=== PATIENT | female | born 1960 | race African-American/Black ===

== ENCOUNTER 2018-09-17 12:58 | Inpatient (IN) | payer MEDICARE, MEDICAID ==
[2018-09-17 13:56] LABS: HEMATOCRIT 34.6 % (36.0-47.0); HEMOGLOBIN 11.8 g/dL (12.0-15.5); MEAN CORPUSCULAR HEMOGLOBIN 30.1 pg (27.0-33.4); MEAN CORPUSCULAR HGB CONC 34.2 g/dL (32.0-36.0); MEAN CORPUSCULAR VOLUME 88 fl (80-97); PLATELET COUNT 417 10^3/uL (150-450); RED BLOOD COUNT 3.93 10^6/uL (3.72-5.28); RED CELL DISTRIBUTION WIDTH 15.1 % (11.5-14.0)
--- NOTE | 2018-09-17 14:12 | RADIOLOGY REPORT (SQ) ---
EXAM DESCRIPTION: CHEST SINGLE VIEW COMPLETED DATE/TIME: 09/17/2018 1:52 pm REASON FOR STUDY: bed 14 sepsis alert COMPARISON: 04/11/2013 EXAM PARAMETERS: NUMBER OF VIEWS: One view. TECHNIQUE: Single frontal radiographic view of the chest acquired. RADIATION DOSE: NA LIMITATIONS: None. FINDINGS: LUNGS AND PLEURA: Low lung volumes. No opacities, masses or pneumothorax. No pleural effu cipriano. MEDIASTINUM AND HILAR STRUCTURES: No masses. Contour normal. HEART AND VASCULAR STRUCTURES: Heart normal in size. Normal vasculature. BONES: No acute findings. HARDWARE: None in the chest. OTHER: No other significant finding. IMPRESSION: Low lung volumes without evidence of acute cardiopulmonary process. TECHNICAL DOCUMENTATION: JOB ID: [id number] [employer]- All Rights Reserved Reading location - IP/workstation name: [email or web address]
[2018-09-17 14:17] LABS: ABSOLUTE LYMPHOCYTES# (MANUAL) 0.7 10^3/uL (0.5-4.7); ABSOLUTE NEUTROPHILS# (MANUAL) 21.3 10^3/uL (1.7-8.2); BAND NEUTROPHILS % (MANUAL) 3 % (3-5); BASOPHILS % (MANUAL) 0 % (0-2); EOSINOPHILS % (MANUAL) 0 % (0-6); LYMPHOCYTES % (MANUAL) 3 % (13-45); MONOCYTES % (MANUAL) 0 % (3-13); SEGMENTED NEUTROPHILS % (MAN) 94 % (42-78); TOTAL CELLS COUNTED 100
[2018-09-17 14:19] LABS: ANISOCYTOSIS 1+; HYPERSEGMENTED NEUTROPHILS PRESENT; PLATELET CLUMPS PRESENT; PLATELET COMMENT ADEQUATE; POIKILOCYTOSIS 2+; POLYCHROMASIA SLIGHT; STOMATOCYTES 2+
[2018-09-17 14:21] LABS: VENOUS BLOOD BASE EXCESS -1.8 mmol/L; VENOUS BLOOD HCO3 22.2 mmol/L (20-32); VENOUS BLOOD PCO2 35.7 mmHg (35-63); VENOUS BLOOD PH 7.41 (7.30-7.42)
[2018-09-17 14:22] LABS: ALANINE AMINOTRANSFERASE 33 U/L (9-52); ALBUMIN 3.7 g/dL (3.5-5.0); ALKALINE PHOSPHATASE 221 U/L (38-126); ANION GAP 13 (5-19); ASPARTATE AMINO TRANSFERASE 41 U/L (14-36); BILIRUBIN,DIRECT 0.4 mg/dL (0.0-0.4); BILIRUBIN,TOTAL 0.7 mg/dL (0.2-1.3); BLOOD UREA NITROGEN 18 mg/dL (7-20); CALCIUM 9.2 mg/dL (8.4-10.2); CARBON DIOXIDE 22 mmol/L (22-30); CHLORIDE 103 mmol/L (98-107); GLUCOSE 205 mg/dL (75-110); POTASSIUM 4.8 mmol/L (3.6-5.0); SODIUM 138.1 mmol/L (137-145); TOTAL PROTEIN 7.3 g/dL (6.3-8.2)
--- NOTE | 2018-09-17 14:29 | ER Document Report ---
ED General - General Chief Complaint: Nausea/Vomiting/Diarrhea Stated Complaint: PAIN ALL OVER Time Seen by Provider: 09/17/18 13:22 Primary Care Provider: MARYA COATES MD [Primary Care Provider] - Follow up as needed TRAVEL OUTSIDE OF THE [place] IN LAST 30 DAYS: No - HPI Onset: Other - 3 weeks Onset/Duration: Gradual, Constant Quality of pain: Cramping Severity: Moderate Associated symptoms: Fever Exacerbated by: Food, Other - vomiting Relieved by: Denies Notes: Patient is a 58-year-old female that presents to the emergency department for chief complaint of nausea vomiting and abdominal pain. She states that she began experiencing her symptoms 3 weeks ago after her and her daughter took care of a baby that was later diagnosed with bronchitis. She reports complete relief of her symptoms yesterday and states that they began again today with nausea, vomiting x3, and chills. She also reports vaginal pain, dysuria and frequency of urination. She had a fever of 101.8 F per EMS. She states that she had an appointment scheduled with her primary care doctor for tomorrow, but that when the symptoms returned today she decided to come to the ED. Patient has not had a BM in 3 days. She has a history of hypertension. She denies surgical history, but has multiple surgeries scheduled for the near fut ure. Patient denies hematuria, hematemesis, shortness of breath, and back pain. Past Medical History: Hypertension, back pain Past Surgical History: Negative Social History: Denies drugs alcohol and tobacco Family History: Reviewed and noncontributory for presenting illness Allergies: Reviewed, see documented allergy list. REVIEW OF SYSTEMS: CONSTITUTIONAL : fever No chills No diaphoresis No recent illness EENT: No vision changes No congestion No sore throat CARDIOVASCULAR: No chest pain No palpitations RESPIRATORY: No shortness of breath No cough No difficulty breathing GASTROINTESTINAL: abdominal pain nausea vomiting diarrhea GENITOURINARY: dysuria No hematuria No difficulty urinating MUSCULOSKELETAL: No back pain No leg pain No arm pain SKIN: No rashes No lesions LYMPHATIC: No swollen, enlarged glands. NEUROLOGICAL: No lightheadedness No headache No weakness No paresthesias PSYCHIATRIC: No anxiety No depression PHYSICAL EXAMINATION: Vital signs reviewed, nursing noted reviewed. GENERAL: Well-appearing, well-nourished and in no acute distress. HEAD: Atraumatic, normocephalic. EYES: Eyes appear normal, extraocular movements intact, sclera anicteric, conjunctiva are normal. ENT: nares patent, oropharynx clear without exudates. Moist mucous membranes. NECK: Normal range of motion, supple without lymphadenopathy LUNGS: Breath sounds clear to auscultation bilaterally and equal. No wheezes rales or rhonchi. HEART: Tachycardic rate and regular rhythm without murmurs ABDOMEN: Soft, nontenter, normoactive bowel sounds. No rebound, guarding, or rigidity. No masses appreciated. EXTREMITIES: Nontender, good range of motion, no pitting or edema. NEUROLOGICAL: No focal neurological deficits. Moves all extremities spontaneously Motor and sensory grossly intact on exam. PSYCH: Normal mood, normal affect. SKIN: Warm, Dry, normal turgor, no rashes or lesions noted on exposed skin - Related Data Allergies/Adverse Reactions: No Known Allergies Allergy (Verified 09/17/18 13:53) Past Medical History - Social History Smoking Status: Unknown if Ever Smoked Family History: Reviewed & Not Pertinent Patient has suicidal ideation: No Patient has homicidal ideation: No - Past Medical History Cardiac Medical History: Reports: Hx Hypercholesterolemia, Hx Hypertension Renal/ Medical History: Denies: Hx Peritoneal Dialysis Musculoskeletal Medical History: Reports Hx Arthritis - Immunizations Hx Diphtheria, Pertussis, Tetanus Vaccination: Yes Physical Exam - Vital signs Vitals: Resp Pulse Ox 28 H 88 L 09/17/18 13:10 09/17/18 13:10 Course - Re-evaluation Re-evalutation: 09/17/18 14:30 Vitals reviewed. Nursing notes reviewed. Patient is febrile and tachycardic at presentation. She is meeting Sirs criteria. Patient was started on IV fluids. She received Zofran prior to arrival by EMS and reports improvement of her pain. Patient will be given Toradol for pain. Her abdominal exam is soft with no focal tenderness. Lab work shows a leukocytosis and elevated lactate consistent with sepsis. Urinalysis is not collected yet. Patient does have urinary complaints and will be started on Rocephin for likely UTI causing sepsis. She has elevated alk phos which is new for her and ultrasound of the right upper quadrant will be obtained to evaluate for underlying acute cholecystitis. Patient's renal function is also elevated and will be treated with fluid hydration. Is on telemetry and will continue to be monitored Laboratory 02/09/17/18 09/17/18 13:36 13:36 13:36 WBC 22.0 H RBC 3.93 Hgb 11.8 L Hct 34.6 L MCV 88 MCH 30.1 MCHC 34.2 RDW 15.1 H Plt Count 417 Total Counted 100 Seg Neutrophils % Not Reportable Seg Neuts % (Manual) 94 H Band Neutrophils % 3 Lymphocytes % Not Reportable Lymphocytes % (Manual) 3 L Monocytes % Not Reportable Monocytes % (Manual) 0 L Eosinophils % Not Reportable Eosinophils % (Manual) 0 Basophils % Not Reportable Basophils % (Manual) 0 Absolute Neutrophils Not Reportable Abs Neuts (Manual) 21.3 H Absolute Lymphocytes Not Reportable Abs Lymphs (Manual) 0.7 Absolute Monocytes Not Reportable Abs Monocytes (Manual) 0.0 L Absolute Eosinophils Not Reportable Absolute Eos (Manual) 0.0 Absolute Basophils Not Reportable Abs Basophils (Manual) 0.0 Hypersegmented Neuts PRESENT Clumped Platelets PRESENT Platelet Comment ADEQUATE Polychromasia SLIGHT Poikilocytosis 2+ Anisocytosis 1+ Stomatocytes 2+ PT Cancelled INR Cancelled Sodium 138.1 Potassium 4.8 Chloride 103 Carbon Dioxide 22 Anion Gap 13 BUN 18 Creatinine 1.77 H Est GFR ( Amer) 36 L Est GFR (Non-Af Amer) 30 L Glucose 205 H POC Glucose Lactic Acid Calcium 9.2 Total Bilirubin 0.7 Direct Bilirubin 0.4 Neonat Total Bilirubin Not Reportable Neonat Direct Bilirubin Not Reportable Neonat Indirect Bili Not Reportable AST 41 H ALT 33 Alkaline Phosphatase 221 H Total Protein 7.3 Albumin 3.7 09/17/18 09/17/18 13:36 13:36 WBC RBC Hgb Hct MCV MCH MCHC RDW Plt Count Total Counted Seg Neutrophils % Seg Neuts % (Manual) Band Neutrophils % Lymphocytes % Lymphocytes % (Manual) Monocytes % Monocytes % (Manual) Eosinophils % Eosinophils % (Manual) Basophils % Basophils % (Manual) Absolute Neutrophils Abs Neuts (Manual) Absolute Lymphocytes Abs Lymphs (Manual) Absolute Monocytes Abs Monocytes (Manual) Absolute Eosinophils Absolute Eos (Manual) Absolute Basophils Abs Basophils (Manual) Hypersegmented Neuts Clumped Platelets Platelet Comment Polychromasia Poikilocytosis Anisocytosis Stomatocytes PT INR Sodium Potassium Chloride Carbon Dioxide Anion Gap BUN Creatinine Est GFR ( Amer) Est GFR (Non-Af Amer) Glucose POC Glucose 200 H Lactic Acid 3.1 H Calcium Total Bilirubin Direct Bilirubin Neonat Total Bilirubin Neonat Direct Bilirubin Neonat Indirect Bili AST ALT Alkaline Phosphatase Total Protein Albumin 09/17/18 14:32 Cyst without acute cholecystitis. She does have a urinary tract infection and is meeting severe sepsis criteria. Patient is still tachycardic despite IV fluids. Her blood pressure has improved to 101/66 currently. Patient will be admitted to the [facility] for her severe sepsis and urinary tract infection. Case discussed with Dr. Cornell who has accepted admission. 09/17/18 18:28 - Vital Signs Vital signs: Temp Pulse Resp BP Pulse Ox 99.5 F 25 H 95/83 L 91 L 09/17/18 18:16 09/17/18 16:00 09/17/18 14:01 09/17/18 15:00 - Laboratory Result Diagrams: 09/17/18 13:36 09/17/18 13:36 Laboratory results interpreted by me: 09/17/18 09/17/18 09/17/18 13:36 13:36 13:36 WBC 22.0 H Hgb 11.8 L Hct 34.6 L RDW 15.1 H Seg Neuts % (Manual) 94 H Lymphocytes % (Manual) 3 L Monocytes % (Manual) 0 L Abs Neuts (Manual) 21.3 H Abs Monocytes (Manual) 0.0 L Creatinine 1.77 H Est GFR ( Amer) 36 L Est GFR (Non-Af Amer) 30 L Glucose 205 H POC Glucose Lactic Acid 3.1 H AST 41 H Alkaline Phosphatase 221 H Urine Protein Urine Blood Urine Urobilinogen Ur Leukocyte Esterase 09/17/18 09/17/18 09/17/18 13:36 17:06 17:51 WBC Hgb Hct RDW Seg Neuts % (Manual) Lymphocytes % (Manual) Monocytes % (Manual) Abs Neuts (Manual) Abs Monocytes (Manual) Creatinine Est GFR ( Amer) Est GFR (Non-Af Amer) Glucose POC Glucose 200 H Lactic Acid 5.8 H AST Alkaline Phosphatase Urine Protein 30 H Urine Blood MODERATE H Urine Urobilinogen 2.0 H Ur Leukocyte Esterase MODERATE H Discharge - Discharge Clinical Impression: Severe sepsis Urinary tract infection Qualifiers: Urinary tract infection type: site unspecified Hematuria presence: with hematuria Qualified Code(s): N39.0 - Urinary tract infection, site not specified; R31.9 - Hematuria, unspecified Condition: Stable Disposition: ADMITTED INPATIENT Admitting Provider: Hospitalist Unit Admitted: IMCU Referrals: MARYA COATES MD [Primary Care Provider] - Follow up as needed
[2018-09-17] MEDS ORDERED: NORMAL SALINE 1000 ML 1,000 ML IV PRN (14:31)
[2018-09-17] MEDS ORDERED: CEFTRIAXONE INJ 1000 MG VIAL IV ONE (14:34)
[2018-09-17] MEDS: RINGERS SOLUTION,LACTATED 1,000 ML IV PRN ×2 (15:04→15:05)
[2018-09-17 15:51] LABS: INTERNATIONAL RATION (INR) 0.99; PROTHROMBIN TIME 13.6 SEC (11.4-15.4)
[2018-09-17] MEDS ORDERED: ONDANSETRON HCL INJ/PF 4 MG/2 ML SDV IV ONE (17:25)
--- NOTE | 2018-09-17 17:36 | RADIOLOGY REPORT (SQ) ---
EXAM DESCRIPTION: U/S ABDOMEN LIMITED W/O DOP COMPLETED DATE/TIME: 09/17/2018 5:14 pm REASON FOR STUDY: RUQ pain COMPARISON: None. TECHNIQUE: Dynamic and static grayscale images acquired of the abdomen and recorded on PACS. Additio nal selected color Doppler and spectral images recorded. LIMITATIONS: None. FINDINGS: PANCREAS: Not visualized. LIVER: No focal masses. Fatty infiltration. 16.6 cm. LIVER VASCULATURE: Normal directional flow of the main portal vein and hepatic veins. GALLBLADDER: Multiple small stones. No pericholecystic fluid. ULTRASOUND-DETECTED FAIRBANKS'S SIGN: Negative. INTRAHEPATIC DUCTS AND COMMON DUCT: CBD and intrahepatic ducts normal caliber. No filling defects. INFERIOR VENA CAVA: Normal flow. AORTA: No aneurysm. RIGHT KIDNEY: Normal size. Normal echogenicity. No solid or suspicious masses. No hydronephrosis. No calcifications. PERITONEAL AND RIGHT PLEURAL SPACE: No ascites or effusions. OTHER: No other significant findings. IMPRESSION: Multiple small stones in the gallbladder. Fatty liver. TECHNICAL DOCUMENTATION: JOB ID: [id number] [employer]- All Rights Reserved Reading location - IP/workstation name: [email or web address]
[2018-09-17 18:12] LABS: APPEARANCE,URINE CLOUDY; BILIRUBIN,URINE NEGATIVE (NEGATIVE); GLUCOSE, URINE NEGATIVE (NEGATIVE); KETONES,URINE NEGATIVE (NEGATIVE); LEUKOCYTE ESTERASE,URINE MODERATE (NEGATIVE); NITRITE,URINE NEGATIVE (NEGATIVE); PROTEIN,URINE 30 mg/dL (NEGATIVE); URINE SPECIFIC GRAVITY 1.018
[2018-09-17 18:14] LABS: COLOR,URINE YELLOW
[2018-09-17] MEDS ORDERED: KETOROLAC TROMETHAMINE INJ/PF 30 MG/1 ML SDV IV ONE (18:33)
[2018-09-17] MEDS ORDERED: ACETAMINOPHEN 325 MG TABLET PO ONE (18:33)
[2018-09-17] MEDS ORDERED: IPRATROPIUM/ALBUTEROL 0.5-2.5 MG/3 ML AMPUL NEB PRN (18:59)
[2018-09-17] MEDS ORDERED: MAG HYDROX/AL HYDROX/SIMETH SUSP 30 ML UDCUP PO PRN (18:59)
[2018-09-17] MEDS ORDERED: MAGNESIUM HYDROXIDE SUSP 30 ML UDCUP PO PRN (18:59)
[2018-09-17] MEDS ORDERED: ONDANSETRON HCL INJ/PF 4 MG/2 ML SDV IV PRN (18:59)
[2018-09-17] MEDS ORDERED: ACETAMINOPHEN 325 MG TABLET PO PRN (20:14)
[2018-09-17] MEDS: DOCUSATE SODIUM 100 MG CAPSULE PO SCH (21:05)
[2018-09-17] MEDS: HEPARIN SOD (PORCINE) 5,000 UNIT/ML 1 ML SYRINGE SUBCUT SCH (21:05)
[2018-09-17] MEDS: TRAZODONE HCL 50 MG TABLET PO SCH (21:05)
[2018-09-18] MEDS ORDERED: NORMAL SALINE 1000 ML 1,000 ML IV ONE (04:44)
--- NOTE | 2018-09-18 04:54 | PDOC H&P ---
History of Present Illness Admission Date/PCP: 09/17/18 18:32 MARYA COATES MD Patient complains of: Fever and diarrhea History of Present Illness: VENTURA PEARSON is a 58 year old female with a past medical history of hypertension, morbid obesity and osteoarthritis. Patient presents with 48 hours of fever, nausea and vomiting of gastric content and diarrhea prompting her to seek evaluation in the emergency department where she is found to have fever, hypotension, leukocytosis, acute renal failure and pyuria. Ultrasound is negative for common bile duct dilatation or hydronephrosis. She receives an IV fluid challenge, empiric antibiotics and referred to the hospitalist for admission. Patient denies history of nephrolithiasis or recent antibiotic use. She is tearful and admits to excessive use of ibuprofen for chronic back pain. Past Medical History Cardiac Medical History: Reports: Hyperlipidema, Hypertension Musculoskeltal Medical History: Reports: Arthritis Psychiatric Medical History: Reports: Depression, General Anxiety Disorder Denies: Tobacco Dependency Past Surgical History Past Surgical History: Reports: None Social History Information Source: Patient, Relative Lives with: Family Smoking Status: Former Smoker Number of Years Smokin Last Time Smoked: 2009 Frequency of Alcohol Use: None Hx Recreational Drug Use: No Drugs: None Hx Prescription Drug Abuse: No - Advance Directive Resuscitation Status: Full Code Family History Family History: COPD, DM Parental Family History Reviewed: Yes Children Family History Reviewed: Yes Sibling(s) Family History Reviewed.: Yes Medication/Allergy Home Medications: Amlodipine Besylate [Norvasc 10 mg Tablet] 10 mg PO DAILY 09/17/18 Atenolol [Tenormin] 50 mg PO DAILY 09/17/18 Diazepam [Valium 5 mg Tablet] 5 mg PO TIDP PRN 09/17/18 Ergocalciferol (Vitamin D2) [Drisdol] 50,000 unit PO .WEEKLY 09/17/18 Tramadol HCl [Ultram] 50 mg PO Q8HP PRN 09/17/18 Allergies/Adverse Reactions: No Known Allergies Allergy (Verified 09/17/18 13:53) Review of Systems Constitutional: ABSENT: chills, fever(s), headache(s), weight gain, weight loss Eyes: ABSENT: visual disturbances Ears: ABSENT: hearing changes Cardiovascular: ABSENT: chest pain, dyspnea on exertion, edema, orthropnea, palpitations Respiratory: ABSENT: cough, hemoptysis Gastrointestinal: ABSENT: abdominal pain, constipation, diarrhea, hematemesis, hematochezia, nausea, vomiting Genitourinary: ABSENT: dysuria, hematuria Musculoskeletal: ABSENT: joint swelling Integumentary: ABSENT: rash, wounds Neurological: ABSENT: abnormal gait, abnormal speech, confusion, dizziness, focal weakness, syncope Psychiatric: ABSENT: anxiety, depression, homidical ideation, suicidal ideation Endocrine: ABSENT: cold intolerance, heat intolerance, polydipsia, polyuria Hematologic/Lymphatic: ABSENT: easy bleeding, easy bruising Physical Exam Vital Signs: Temp Pulse Resp BP Pulse Ox 99.1 F 75 20 100/56 L 98 09/17/18 23:59 09/18/18 02:00 09/17/18 23:59 09/17/18 23:59 09/18/18 03:50 Intake & Output 09/16/18 09/17/18 09/18/18 11:59 11:59 11:59 Intake Total 1000 Output Total 0 Balance 1000 Weight 121.3 kg General appearance: PRESENT: cooperative, mild distress, morbidly obese. ABSENT: disheveled Head exam: PRESENT: atraumatic, normocephalic Eye exam: PRESENT: conjunctiva pink, EOMI, PERRLA. ABSENT: scleral icterus Ear exam: PRESENT: normal external ear exam Mouth exam: PRESENT: moist, tongue midline Neck exam: ABSENT: carotid bruit, JVD, lymphadenopathy, thyromegaly Respiratory exam: PRESENT: clear to auscultation eusebio, symmetrical, tachypnea. ABSENT: rales, rhonchi, wheezes Cardiovascular exam: PRESENT: RRR, tachycardia. ABSENT: diastolic murmur, rubs, systolic murmur Pulses: PRESENT: normal dorsalis pedis pul Vascular exam: PRESENT: normal capillary refill GI/Abdominal exam: PRESENT: normal bowel sounds, soft, other - No flank pain to percussion. ABSENT: distended, guarding, mass, organolmegaly, rebound, tenderness Rectal exam: PRESENT: deferred Extremities exam: PRESENT: full ROM. ABSENT: calf tenderness, clubbing, pedal edema Neurological exam: PRESENT: alert, awake, oriented to person, oriented to place, oriented to time, oriented to situation, CN II-XII grossly intact. ABSENT: motor sensory deficit Psychiatric exam: PRESENT: anxious. ABSENT: depressed, flat affect Skin exam: PRESENT: dry, intact, warm. ABSENT: cyanosis, rash Results Laboratory Results: 09/17/18 13:36 09/17/18 13:36 09/17/18 09/17/18 09/17/18 13:36 13:36 13:36 WBC 22.0 H RBC 3.93 Hgb 11.8 L Hct 34.6 L MCV 88 MCH 30.1 MCHC 34.2 RDW 15.1 H Plt Count 417 Seg Neutrophils % Not Reportable Lymphocytes % Not Reportable Monocytes % Not Reportable Eosinophils % Not Reportable Basophils % Not Reportable Absolute Neutrophils Not Reportable Absolute Lymphocytes Not Reportable Absolute Monocytes Not Reportable Absolute Eosinophils Not Reportable Absolute Basophils Not Reportable VBG pH VBG pCO2 VBG HCO3 VBG Base Excess Sodium 138.1 Potassium 4.8 Chloride 103 Carbon Dioxide 22 Anion Gap 13 BUN 18 Creatinine 1.77 H Est GFR ( Amer) 36 L Est GFR (Non-Af Amer) 30 L Glucose 205 H Lactic Acid 3.1 H Calcium 9.2 Total Bilirubin 0.7 AST 41 H ALT 33 Alkaline Phosphatase 221 H Total Protein 7.3 Albumin 3.7 Urine Color Urine Appearance Urine pH Ur Specific [place] Urine Protein Urine Glucose (UA) Urine Ketones Urine Blood Urine Nitrite Ur Leukocyte Esterase Urine WBC (Auto) Urine RBC (Auto) 09/17/18 09/17/18 09/17/18 14:07 17:06 17:51 WBC RBC Hgb Hct MCV MCH MCHC RDW Plt Count Seg Neutrophils % Lymphocytes % Monocytes % Eosinophils % Basophils % Absolute Neutrophils Absolute Lymphocytes Absolute Monocytes Absolute Eosinophils Absolute Basophils VBG pH 7.41 VBG pCO2 35.7 VBG HCO3 22.2 VBG Base Excess -1.8 Sodium Potassium Chloride Carbon Dioxide Anion Gap BUN Creatinine Est GFR ( Amer) Est GFR (Non-Af Amer) Glucose Lactic Acid 5.8 H Calcium Total Bilirubin AST ALT Alkaline Phosphatase Total Protein Albumin Urine Color YELLOW Urine Appearance CLOUDY Urine pH 5.0 Ur Specific [place] 1.018 Urine Protein 30 H Urine Glucose (UA) NEGATIVE Urine Ketones NEGATIVE Urine Blood MODERATE H Urine Nitrite NEGATIVE Ur Leukocyte Esterase MODERATE H Urine WBC (Auto) 48 Urine RBC (Auto) 6 09/17/18 21:25 WBC RBC Hgb Hct MCV MCH MCHC RDW Plt Count Seg Neutrophils % Lymphocytes % Monocytes % Eosinophils % Basophils % Absolute Neutrophils Absolute Lymphocytes Absolute Monocytes Absolute Eosinophils Absolute Basophils VBG pH VBG pCO2 VBG HCO3 VBG Base Excess Sodium Potassium Chloride Carbon Dioxide Anion Gap BUN Creatinine Est GFR ( Amer) Est GFR (Non-Af Amer) Glucose Lactic Acid 1.7 Calcium Total Bilirubin AST ALT Alkaline Phosphatase Total Protein Albumin Urine Color Urine Appearance Urine pH Ur Specific [place] Urine Protein Urine Glucose (UA) Urine Ketones Urine Blood Urine Nitrite Ur Leukocyte Esterase Urine WBC (Auto) Urine RBC (Auto) Impressions: Chest X-Ray 09/17/18 13:04 IMPRESSION: Low lung volumes without evidence of acute cardiopulmonary process. Abdomen Ultrasound 09/17/18 14:30 IMPRESSION: Multiple small stones in the gallbladder. Fatty liver. Assessment & Plan - Diagnosis (1) Urinary tract infection Qualifiers: Urinary tract infection type: site unspecified Hematuria presence: with he maturia Qualified Code(s): N39.0 - Urinary tract infection, site not spec ified; R31.9 - Hematuria, unspecified Is this a current diagnosis for this admission?: Yes Plan: Complicated by hyperglycemia and suspected undiagnosed diabetes. No history of nephrolithiasis. IV Rocephin, IV fluid challenge, follow-up CBC, blood and urine culture (2) Severe sepsis Is this a current diagnosis for this admission?: Yes Plan: Secondary to #1, IV fluid challenge, consider pressors as needed (3) Hyperglycemia Is this a current diagnosis for this admission?: Yes Plan: Likely undiagnosed diabetes, sliding scale insulin ordered follow-up A1c (4) Morbid obesity Is this a current diagnosis for this admission?: Yes Plan: Morbid obesity will evaluate for metabolic cause with evaluation of thyroid function and dietitian consultation - Time Time Spent: 50 to 70 Minutes - Inpatient Certification Medical Necessity: Need Close Monitoring Due to Risk of Patient Decompensation
[2018-09-18] MEDS: HEPARIN SOD (PORCINE) 5,000 UNIT/ML 1 ML SYRINGE SUBCUT SCH ×3 (05:14→22:23)
[2018-09-18 06:38] LABS: ABSOLUTE BASOPHILS # (AUTO) 0.1 10^3/uL (0.0-0.2); ABSOLUTE LYMPHOCYTES (AUTO) 2.4 10^3/uL (0.5-4.7); ABSOLUTE MONOCYTES (AUTO) 0.6 10^3/uL (0.1-1.4); ABSOLUTE NEUT (AUTO) 13.7 10^3/uL (1.7-8.2); BASOPHILS % (AUTO) 0.5 % (0-2); EOSINOPHILS % (AUTO) 0.1 % (0-6); HEMATOCRIT 31.5 % (36.0-47.0); HEMOGLOBIN 10.5 g/dL (12.0-15.5); LYMPHOCYTES % (AUTO) 14.2 % (13-45); MEAN CORPUSCULAR HEMOGLOBIN 29.8 pg (27.0-33.4); MEAN CORPUSCULAR HGB CONC 33.4 g/dL (32.0-36.0); MEAN CORPUSCULAR VOLUME 89 fl (80-97); MONOCYTES % (AUTO) 3.4 % (3-13); PLATELET COUNT 316 10^3/uL (150-450); RED BLOOD COUNT 3.54 10^6/uL (3.72-5.28); RED CELL DISTRIBUTION WIDTH 15.1 % (11.5-14.0); SEGMENTED NEUTROPHILS % (AUTO) 81.8 % (42-78); TOTAL CELLS COUNTED % (AUTO) 100 %; WHITE BLOOD COUNT 16.7 10^3/uL (4.0-10.5)
[2018-09-18 06:54] LABS: ANION GAP 10 (5-19); BLOOD UREA NITROGEN 26 mg/dL (7-20); CALCIUM 8.6 mg/dL (8.4-10.2); CARBON DIOXIDE 27 mmol/L (22-30); CHLORIDE 102 mmol/L (98-107); GLUCOSE 124 mg/dL (75-110); POTASSIUM 4.6 mmol/L (3.6-5.0); SODIUM 139.4 mmol/L (137-145)
[2018-09-18] MEDS: DOCUSATE SODIUM 100 MG CAPSULE PO SCH ×2 (09:35→18:20)
[2018-09-18] MEDS: CEFTRIAXONE 1 GM/D5W RTU 1 GM/50 ML RTUPB IV SCH (12:56)
[2018-09-18] MEDS: TRAMADOL HCL 50 MG TABLET PO PRN (17:03)
--- NOTE | 2018-09-18 17:04 | PDOC PROGRESS REPORT ---
Subjective Progress Note for:: 09/18/18 Subjective:: No adverse events overnight. No new complaints. She says she is starting to put out some urine and just urinated for the first time since admission. She was also previously having some shaking chills but those have also resolved. Her appetite is improving. Reason For Visit: UTI SEPSIS ARF MORBID OBESITY Physical Exam Vital Signs: Temp Pulse Resp BP Pulse Ox 98.2 F 86 16 105/75 97 09/18/18 12:00 09/18/18 14:00 09/18/18 12:00 09/18/18 12:00 09/18/18 12:00 Intake & Output 09/17/18 09/18/18 09/19/18 06:59 06:59 06:59 Intake Total 2200 355 Output Total 0 400 Balance 2200 -45 Weight 121 kg 121 kg General appearance: PRESENT: no acute distress, cooperative, disheveled, morbidly obese Respiratory exam: PRESENT: clear to auscultation eusebio, symmetrical, unlabored. ABSENT: accessory muscle use, crackles, prolonged expiratory phas, rhonchi, tachypnea, wheezes Cardiovascular exam: PRESENT: RRR, +S1, +S2 Pulses: PRESENT: normal carotid pulses Vascular exam: PRESENT: normal capillary refill GI/Abdominal exam: PRESENT: normal bowel sounds, soft. ABSENT: distended, guarding, rebound, tenderness Extremities exam: ABSENT: clubbing, pedal edema Musculoskeletal exam: PRESENT: normal inspection. ABSENT: deformity Neurological exam: PRESENT: alert, awake, oriented to person, oriented to place, oriented to time, oriented to situation Psychiatric exam: PRESENT: appropriate affect, normal mood Skin exam: PRESENT: dry, warm Results Laboratory Results: 09/18/18 05:10 09/18/18 05:10 09/17/18 09/17/18 09/17/18 14:07 17:06 17:51 WBC RBC Hgb Hct MCV MCH MCHC RDW Plt Count Seg Neutrophils % Lymphocytes % Monocytes % Eosinophils % Basophils % Absolute Neutrophils Absolute Lymphocytes Absolute Monocytes Absolute Eosinophils Absolute Basophils VBG pH 7.41 VBG pCO2 35.7 VBG HCO3 22.2 VBG Base Excess -1.8 Sodium Potassium Chloride Carbon Dioxide Anion Gap BUN Creatinine Est GFR ( Amer) Est GFR (Non-Af Amer) Glucose Lactic Acid 5.8 H Calcium TSH Urine Color YELLOW Urine Appearance CLOUDY Urine pH 5.0 Ur Specific [place] 1.018 Urine Protein 30 H Urine Glucose (UA) NEGATIVE Urine Ketones NEGATIVE Urine Blood MODERATE H Urine Nitrite NEGATIVE Ur Leukocyte Esterase MODERATE H Urine WBC (Auto) 48 Urine RBC (Auto) 6 09/17/18 09/18/18 09/18/18 21:25 05:10 05:10 WBC 16.7 H RBC 3.54 L Hgb 10.5 L Hct 31.5 L MCV 89 MCH 29.8 MCHC 33.4 RDW 15.1 H Plt Count 316 Seg Neutrophils % 81.8 H Lymphocytes % 14.2 Monocytes % 3.4 Eosinophils % 0.1 Basophils % 0.5 Absolute Neutrophils 13.7 H Absolute Lymphocytes 2.4 Absolute Monocytes 0.6 Absolute Eosinophils 0.0 Absolute Basophils 0.1 VBG pH VBG pCO2 VBG HCO3 VBG Base Excess Sodium 139.4 Potassium 4.6 Chloride 102 Carbon Dioxide 27 Anion Gap 10 BUN 26 H Creatinine 2.07 H Est GFR ( Amer) 30 L Est GFR (Non-Af Amer) 25 L Glucose 124 H Lactic Acid 1.7 Calcium 8.6 TSH Urine Color Urine Appearance Urine pH Ur Specific [place] Urine Protein Urine Glucose (UA) Urine Ketones Urine Blood Urine Nitrite Ur Leukocyte Esterase Urine WBC (Auto) Urine RBC (Auto) 09/18/18 05:10 WBC RBC Hgb Hct MCV MCH MCHC RDW Plt Count Seg Neutrophils % Lymphocytes % Monocytes % Eosinophils % Basophils % Absolute Neutrophils Absolute Lymphocytes Absolute Monocytes Absolute Eosinophils Absolute Basophils VBG pH VBG pCO2 VBG HCO3 VBG Base Excess Sodium Potassium Chloride Carbon Dioxide Anion Gap BUN Creatinine Est GFR ( Amer) Est GFR (Non-Af Amer) Glucose Lactic Acid Calcium TSH 1.63 Urine Color Urine Appearance Urine pH Ur Specific [place] Urine Protein Urine Glucose (UA) Urine Ketones Urine Blood Urine Nitrite Ur Leukocyte Esterase Urine WBC (Auto) Urine RBC (Auto) Impressions: Chest X-Ray 09/17/18 13:04 IMPRESSION: Low lung volumes without evidence of acute cardiopulmonary process. Abdomen Ultrasound 09/17/18 14:30 IMPRESSION: Multiple small stones in the gallbladder. Fatty liver. Assessment & Plan - Diagnosis (1) Severe sepsis Is this a current diagnosis for this admission?: Yes Plan: Improving with antibiotics and IV fluids. Urine output is improving. Due to urinary tract infection. Cultures are pending. (2) Acute renal failure Qualifiers: Acute renal failure type: unspecified Qualified Code(s): N17.9 - Acute kidney failure, unspecified Is this a current diagnosis for this admission?: Yes Plan: Her creatinine has actually gone up, and with her BUN it would look more like ATN. However, her urine output is increasing. We will continue to follow the trend in her creatinine. (3) Urinary tract infection Qualifiers: Urinary tract infection type: site unspecified Hematuria presence: with hematuria Qualified Code(s): N39.0 - Urinary tract infection, site not specified; R31.9 - Hematuria, unspecified Is this a current diagnosis for this admission?: Yes Plan: On antibiotics. Cultures are pending. (4) Morbid obesity Is this a current diagnosis for this admission?: Yes Plan: Encouraged lifestyle modification - Time Time Spent with patient: 25-34 minutes
[2018-09-18] MEDS: TRAZODONE HCL 50 MG TABLET PO SCH (21:15)
--- NOTE | 2018-09-18 22:18 | EKG REPORT ---
SEVERITY:- ABNORMAL ECG - SINUS TACHYCARDIA MARIO, CONSIDER BIATRIAL ABNORMALITIES BORDERLINE T ABNORMALITIES, ANT-LAT LEADS : Confirmed by: Velma Puri 18-Sep-2018 22:17:07
[2018-09-19] MEDS: HEPARIN SOD (PORCINE) 5,000 UNIT/ML 1 ML SYRINGE SUBCUT SCH ×3 (05:26→22:00)
[2018-09-19] MEDS: DOCUSATE SODIUM 100 MG CAPSULE PO SCH ×2 (09:43→17:47)
[2018-09-19] MEDS: TRAMADOL HCL 50 MG TABLET PO PRN (09:43)
[2018-09-19 11:10] LABS: HEMOGLOBIN 9.5 g/dL (12.0-15.5); MEAN CORPUSCULAR HEMOGLOBIN 29.9 pg (27.0-33.4); MEAN CORPUSCULAR VOLUME 88 fl (80-97); PLATELET COUNT 313 10^3/uL (150-450); RED BLOOD COUNT 3.18 10^6/uL (3.72-5.28); WHITE BLOOD COUNT 13.5 10^3/uL (4.0-10.5)
[2018-09-19 11:36] LABS: ANION GAP 9 (5-19); BLOOD UREA NITROGEN 17 mg/dL (7-20); CALCIUM 8.5 mg/dL (8.4-10.2); CARBON DIOXIDE 24 mmol/L (22-30); CHLORIDE 104 mmol/L (98-107); GLUCOSE 189 mg/dL (75-110); POTASSIUM 4.7 mmol/L (3.6-5.0); SODIUM 137.3 mmol/L (137-145)
[2018-09-19] MEDS: CEFTRIAXONE 1 GM/D5W RTU 1 GM/50 ML RTUPB IV SCH (11:53)
--- NOTE | 2018-09-19 13:58 | Progress Note ---
Provider Note Provider Note: ID Consult Note Asked by Pharmacy to review patient's chart. Pt not seen or examined. Ms Sanford is a 58 year old woman with PMH including morbid obesity, HTN, and OA who was admitted on 09/17/18 after she presented to the ED with fever, nausea, vomiting and diarrhea. She was found to have temp of 103 F, tachycardia, hypotension. On exam she had no CVA tenderness, had clear lungs, NABS, no abdominal tenderness noted. Labs revealed elevated lactic acid level, DAIN, leukocyotsis, and pyuria on U/A. RUQ U/S was negative for CBD dilatation or hydronephrosis. CXR was read as showing low lung volumes without acute cardiopulmonary process. She was suspected of having sepsis due to a UTI. Rocephin was started. One set of initial blood cultures has growth of Gram negative rods preliminarily reported. The urine culture grew >100k Enterococcus faecalis, however. Pt has had improvement with resolution of elevated lactate, leukocytosis trending down, SCr trending down, last fever on 09/18. Impression/Recommendations Sepsis due to gram negative bacillary bacteremia. - I suspect this is more likely GI rather than in origin given lack of dysuria reported, a different organism (not a GNR growing in urine culture), presenting GI symptoms, hx of diverticulosis on prior CT scan. - Would continue empiric Rocephin but recommend increasing dose to 2 g Rocephin IV daily given pt's size and seriousness of infection. - Consider adding Flagyl. - Consider CT scan of abdomen to evaluate whether pt might have a source there such as diverticulitis or diverticular abscess. Willie Napoles MD [facility] pager [phone]
--- NOTE | 2018-09-19 15:48 | PDOC PROGRESS REPORT ---
Subjective Progress Note for:: 09/19/18 Subjective:: No adverse events overnight. No new complaints. Vital signs been stable. She is eating and drinking better. Urine output has increased. She did have a fever overnight but has defervesced today. No more diarrhea. Reason For Visit: UTI SEPSIS ARF MORBID OBESITY Physical Exam Vital Signs: Temp Pulse Resp BP Pulse Ox 98.9 F 80 19 103/66 91 L 09/19/18 09:22 09/19/18 13:58 09/19/18 09:22 09/19/18 09:22 09/19/18 09:22 Intake & Output 09/18/18 09/19/18 09/20/18 06:59 06:59 06:59 Intake Total 2200 1045 50 Output Total 0 3150 Balance 2200 -2105 50 Weight 121 kg 121.5 kg General appearance: PRESENT: no acute distress, cooperative, disheveled, morbidly obese Respiratory exam: PRESENT: clear to auscultation eusebio, symmetrical, unlabored. ABSENT: accessory muscle use, crackles, prolonged expiratory phas, rhonchi, tachypnea, wheezes Cardiovascular exam: PRESENT: RRR, +S1, +S2 Pulses: PRESENT: normal carotid pulses Vascular exam: PRESENT: normal capillary refill GI/Abdominal exam: PRESENT: normal bowel sounds, soft. ABSENT: distended, guarding, rebound, tenderness Extremities exam: ABSENT: clubbing, pedal edema Musculoskeletal exam: PRESENT: normal inspection. ABSENT: deformity Neurological exam: PRESENT: alert, awake, oriented to person, oriented to place, oriented to time, oriented to situation Psychiatric exam: PRESENT: appropriate affect, normal mood Skin exam: PRESENT: dry, warm Results Laboratory Results: 09/19/18 10:36 09/19/18 10:36 09/19/18 09/19/18 10:36 10:36 WBC 13.5 H RBC 3.18 L Hgb 9.5 L Hct 28.0 L MCV 88 MCH 29.9 MCHC 34.0 RDW 15.0 H Plt Count 313 Sodium 137.3 Potassium 4.7 Chloride 104 Carbon Dioxide 24 Anion Gap 9 BUN 17 Creatinine 1.65 H Est GFR ( Amer) 39 L Est GFR (Non-Af Amer) 32 L Glucose 189 H Calcium 8.5 09/17/18 17:06 Clean Catch Midstream Urine Culture - Final Enterococcus Faecalis(Group D) Impressions: Chest X-Ray 09/17/18 13:04 IMPRESSION: Low lung volumes without evidence of acute cardiopulmonary process. Abdomen Ultrasound 09/17/18 14:30 IMPRESSION: Multiple small stones in the gallbladder. Fatty liver. Assessment & Plan - Diagnosis (1) Severe sepsis Is this a current diagnosis for this admission?: Yes Plan: Improving with antibiotics and IV fluids. Urine output is improving. Urine culture showing enterococcus, blood culture showing a gram-negative organism. Infectious disease recommending increasing the Rocephin to 2 g a day and adding Flagyl. Ordering CT scan as ID recommended to rule out a GI source for her bacteremia. (2) Acute renal failure Qualifiers: Acute renal failure type: unspecified Qualified Code(s): N17.9 - Acute kidney failure, unspecified Is this a current diagnosis for this admission?: Yes Plan: Due to sepsis. Improving with IV fluids. (3) Urinary tract infection Qualifiers: Urinary tract infection type: site unspecified Hematuria presence: with hematuria Qualified Code(s): N39.0 - Urinary tract infection, site not specified; R31.9 - Hematuria, unspecified Is this a current diagnosis for this admission?: Yes Plan: Currently on Rocephin. Has turned out to be an enterococcus. We will switch to amoxicillin pending the results of her blood culture. (4) Morbid obesity Is this a current diagnosis for this admission?: Yes Plan: Encouraged lifestyle modification - Time Time Spent with patient: 25-34 minutes
[2018-09-19] MEDS: METRONIDAZOLE 500 MG/NS RTU 500 MG/100 ML RTUPB IV SCH ×2 (17:42→23:23)
[2018-09-19] MEDS: TRAZODONE HCL 50 MG TABLET PO SCH (21:11)
[2018-09-20] MEDS: METRONIDAZOLE 500 MG/NS RTU 500 MG/100 ML RTUPB IV SCH ×3 (05:02→17:57)
[2018-09-20] MEDS: HEPARIN SOD (PORCINE) 5,000 UNIT/ML 1 ML SYRINGE SUBCUT SCH ×3 (05:03→21:34)
[2018-09-20] MEDS: CEFTRIAXONE 2 GM/D5W RTU 2 GM/50 ML RTUPB IV SCH (10:03)
[2018-09-20] MEDS: DOCUSATE SODIUM 100 MG CAPSULE PO SCH ×2 (10:13→17:56)
--- NOTE | 2018-09-20 16:35 | PDOC PROGRESS REPORT ---
Subjective Progress Note for:: 09/20/18 Subjective:: No adverse events overnight. Try to get a CT scan on her as recommended by infectious disease, but the patient adamantly refused to do it. She even refused to try whenever I told her we could give her something to calm her so we can get the test done but she continued to refuse. She had a fever again last night. She is denying any significant abdominal pain. No diarrhea. Reason For Visit: UTI SEPSIS ARF MORBID OBESITY Physical Exam Vital Signs: Temp Pulse Resp BP Pulse Ox 99.0 F 99 19 124/66 96 09/20/18 12:16 09/20/18 12:16 09/20/18 12:16 09/20/18 12:16 09/20/18 12:16 Intake & Output 09/19/18 09/20/18 09/21/18 06:59 06:59 06:59 Intake Total 1045 1105 50 Output Total 3150 4 Balance -2105 1101 50 Weight 121.5 kg 122.2 kg General appearance: PRESENT: no acute distress, cooperative, disheveled, morbidly obese Respiratory exam: PRESENT: clear to auscultation eusebio, symmetrical, unlabored. ABSENT: accessory muscle use, crackles, prolonged expiratory phas, rhonchi, ta chypnea, wheezes Cardiovascular exam: PRESENT: RRR, +S1, +S2 Pulses: PRESENT: normal carotid pulses Vascular exam: PRESENT: normal capillary refill GI/Abdominal exam: PRESENT: normal bowel sounds, soft. ABSENT: distended, guarding, rebound, tenderness Extremities exam: ABSENT: clubbing, pedal edema Musculoskeletal exam: PRESENT: normal inspection. ABSENT: deformity Neurological exam: PRESENT: alert, awake, oriented to person, oriented to place, oriented to time, oriented to situation Psychiatric exam: PRESENT: appropriate affect, normal mood Skin exam: PRESENT: dry, warm Results Laboratory Results: 09/19/18 10:36 09/19/18 10:36 09/17/18 13:36 Blood Blood Culture - Final Proteus Mirabilis Impressions: Chest X-Ray 09/17/18 13:04 IMPRESSION: Low lung volumes without evidence of acute cardiopulmonary process. Abdomen Ultrasound 09/17/18 14:30 IMPRESSION: Multiple small stones in the gallbladder. Fatty liver. Assessment & Plan - Diagnosis (1) Severe sepsis Is this a current diagnosis for this admission?: Yes Plan: Improving with antibiotics and IV fluids. Urine output is improving. Urine culture showing enterococcus, blood culture showing a gram-negative organism. Infectious disease recommending increasing the and Flagyl . To 2 g a day and adding Flagyl. She is refusing to get the CT scan that ID recommended. At this point, we will continue to empirically treat with Flagyl and Rocephinuntil we get final culture results (2) Acute renal failure Qualifiers: Acute renal failure type: unspecified Qualified Code(s): N17.9 - Acute kidney failure, unspecified Is this a current diagnosis for this admission?: Yes Plan: Creatinine now trending back down after IV fluids and antibiotics. Suspect that her acute renal failure was due to sepsis. (3) Urinary tract infection Qualifiers: Urinary tract infection type: site unspecified Hematuria presence: with hematuria Qualified Code(s): N39.0 - Urinary tract infection, site not specified; R31.9 - Hematuria, unspecified Is this a current diagnosis for this admission?: Yes Plan: Currently on Rocephin. Has turned out to be an enterococcus. We will switch to amoxicillin pending the results of her blood culture. (4) Morbid obesity Is this a current diagnosis for this admission?: Yes Plan: Encouraged lifestyle modification - Time Time Spent with patient: 25-34 minutes
[2018-09-20] MEDS: TRAZODONE HCL 50 MG TABLET PO SCH (21:35)
[2018-09-21] MEDS: METRONIDAZOLE 500 MG/NS RTU 500 MG/100 ML RTUPB IV SCH ×3 (00:16→12:48)
[2018-09-21] MEDS: HEPARIN SOD (PORCINE) 5,000 UNIT/ML 1 ML SYRINGE SUBCUT SCH ×3 (05:42→21:52)
[2018-09-21] MEDS: DOCUSATE SODIUM 100 MG CAPSULE PO SCH ×2 (09:52→17:30)
[2018-09-21] MEDS: CEFTRIAXONE 2 GM/D5W RTU 2 GM/50 ML RTUPB IV SCH (09:52)
[2018-09-21 11:07] LABS: HEMATOCRIT 29.1 % (36.0-47.0); MEAN CORPUSCULAR HEMOGLOBIN 30.6 pg (27.0-33.4); MEAN CORPUSCULAR HGB CONC 34.4 g/dL (32.0-36.0); MEAN CORPUSCULAR VOLUME 89 fl (80-97); PLATELET COUNT 358 10^3/uL (150-450); RED BLOOD COUNT 3.26 10^6/uL (3.72-5.28); RED CELL DISTRIBUTION WIDTH 15.1 % (11.5-14.0); WHITE BLOOD COUNT 9.7 10^3/uL (4.0-10.5)
[2018-09-21 11:27] LABS: ANION GAP 9 (5-19); BLOOD UREA NITROGEN 9 mg/dL (7-20); CARBON DIOXIDE 24 mmol/L (22-30); CHLORIDE 104 mmol/L (98-107); GLUCOSE 185 mg/dL (75-110); POTASSIUM 4.7 mmol/L (3.6-5.0)
--- NOTE | 2018-09-21 16:05 | PDOC PROGRESS REPORT ---
Subjective Progress Note for:: 09/21/18 Subjective:: No adverse events overnight. No new complaints. No abdominal pain. No diarrhea. Eating and drinking without difficulty. Good urine output. Still refusing CT scan of the abdomen which was recommended by infectious disease. Reason For Visit: UTI SEPSIS ARF MORBID OBESITY Physical Exam Vital Signs: Temp Pulse Resp BP Pulse Ox 98.4 F 103 H 18 111/92 H 99 09/21/18 12:27 09/21/18 12:27 09/21/18 12:27 09/21/18 12:27 09/21/18 12:27 Intake & Output 09/20/18 09/21/18 09/22/18 06:59 06:59 06:59 Intake Total 1105 1122 150 Output Total 4 3 Balance 1101 1119 150 Weight 122.2 kg 120.2 kg General appearance: PRESENT: no acute distress, cooperative, disheveled, morbidly obese Respiratory exam: PRESENT: clear to auscultation eusebio, symmetrical, unlabored. ABSENT: accessory muscle use, crackles, prolonged expiratory phas, rhonchi, tachypnea, wheezes Cardiovascular exam: PRESENT: RRR, +S1, +S2 Pulses: PRESENT: normal carotid pulses Vascular exam: PRESENT: normal capillary refill GI/Abdominal exam: PRESENT: normal bowel sounds, soft. ABSENT: distended, guarding, rebound, tenderness Extremities exam: ABSENT: clubbing, pedal edema Musculoskeletal exam: PRESENT: normal inspection. ABSENT: deformity Neurological exam: PRESENT: alert, awake, oriented to person, oriented to place, oriented to time, oriented to situation Psychiatric exam: PRESENT: appropriate affect, normal mood Skin exam: PRESENT: dry, warm Results Laboratory Results: 09/21/18 10:05 09/21/18 10:05 09/21/18 09/21/18 10:05 10:05 WBC 9.7 RBC 3.26 L Hgb 10.0 L Hct 29.1 L MCV 89 MCH 30.6 MCHC 34.4 RDW 15.1 H Plt Count 358 Sodium 137.0 Potassium 4.7 Chloride 104 Carbon Dioxide 24 Anion Gap 9 BUN 9 Creatinine 1.27 H Est GFR ( Amer) 53 L Est GFR (Non-Af Amer) 44 L Glucose 185 H Calcium 9.0 Impressions: Chest X-Ray 09/17/18 13:04 IMPRESSION: Low lung volumes without evidence of acute cardiopulmonary process. Abdomen Ultrasound 09/17/18 14:30 IMPRESSION: Multiple small stones in the gallbladder. Fatty liver. Assessment & Plan - Diagnosis (1) Severe sepsis Is this a current diagnosis for this admission?: Yes Plan: Improving with antibiotics and IV fluids. Urine output is improving. Urine culture showing enterococcus, blood culture showing a Proteus. She is refusing to get the CT scan that ID recommended. Infectious disease had recommended Roce phin and Flagyl empirically for possible intra-abdominal infection as a source of the bacteremia. Will stop Rocephin and Flagyl because of her clinical improvement. Will start Augmentin as this should cover the enterococcus in the urine, the Proteus bacteremia, and is also an acceptable treatment for a colitis. (2) Acute renal failure Qualifiers: Acute renal failure type: unspecified Qualified Code(s): N17.9 - Acute kidney failure, unspecified Is this a current diagnosis for this admission?: Yes Plan: Improving with IV fluids. Creatinine nearly normal. (3) Urinary tract infection Qualifiers: Urinary tract infection type: site unspecified Hematuria presence: with hematuria Qualified Code(s): N39.0 - Urinary tract infection, site not specified; R31.9 - Hematuria, unspecified Is this a current diagnosis for this admission?: Yes Plan: As noted above (4) Morbid obesity Is this a current diagnosis for this admission?: Yes Plan: Encouraged lifestyle modification (5) Bacterial infection due to Proteus mirabilis Is this a current diagnosis for this admission?: Yes Plan: As noted above - Time Time Spent with patient: 25-34 minutes
[2018-09-21] MEDS: AMOXICILLIN TR/POT CLAVULANATE 500-125 MG TAB PO SCH (21:52)
[2018-09-21] MEDS: TRAZODONE HCL 50 MG TABLET PO SCH (21:52)
[2018-09-22] MEDS: HEPARIN SOD (PORCINE) 5,000 UNIT/ML 1 ML SYRINGE SUBCUT SCH ×2 (05:49→13:08)
[2018-09-22] MEDS: AMOXICILLIN TR/POT CLAVULANATE 500-125 MG TAB PO SCH ×2 (05:50→13:08)
[2018-09-22] MEDS: DOCUSATE SODIUM 100 MG CAPSULE PO SCH (09:34)
[2018-09-22 14:13] VITALS: BP 98/56
--- NOTE | 2018-09-22 19:53 | PDOC DISCHARGE SUMMARY ---
General - Admit/Disc Date/PCP Admission Date/Primary Care Provider: 09/17/18 18:32 EDSON PERES, DO Discharge Date: 09/22/18 - Discharge Diagnosis (1) Severe sepsis Is this a current diagnosis for this admission?: Yes Summary: She was septic from urinary tract infection with an acute kidney injury. There was also some concern for an intra-abdominal infection. Infectious disease wanted us to get a CT of the abdomen and pelvis, but the patient would not allow it. Her sepsis did resolve with antibiotics and IV fluids. Cultures were positive as noted below. (2) Acute renal failure Is this a current diagnosis for this admission?: Yes Summary: Due to sepsis, this resolved with IV fluid administration. (3) Urinary tract infection Is this a current diagnosis for this admission?: Yes Summary: Due to enterococcus. Was sensitive to ampicillin. She will finish up a course of amoxicillin at home. (4) Morbid obesity Is this a current diagnosis for this admission?: Yes Summary: Encouraged lifestyle modification (5) Bacterial infection due to Proteus mirabilis Is this a current diagnosis for this admission?: Yes Summary: This was different from what was in her urine, which prompted infectious disease to request a CT scan of the abdomen and pelvis, because of the GI complaints and she had when she was admitted. The patient refused to allow through a CT scan. This was of fairly sensitive strain, so we will be treating it with Augmentin for 2 weeks. - Additional Information Resuscitation Status: Full Code Discharge Diet: Cardiac Discharge Activity: Activity As Tolerated Prescriptions: Amox Tr/Potassium Clavulanate [Augmentin 875-125 mg Tablet] 1 tab PO BID #28 tablet Home Medications: Amlodipine Besylate [Norvasc 10 mg Tablet] 10 mg PO DAILY 09/17/18 Atenolol [Tenormin] 50 mg PO DAILY 09/17/18 Diazepam [Valium 5 mg Tablet] 5 mg PO TIDP PRN 09/17/18 Ergocalciferol (Vitamin D2) [Drisdol] 50,000 unit PO MO@1000 09/17/18 Tramadol HCl [Ultram] 50 mg PO Q8HP PRN 09/17/18 Amox Tr/Potassium Clavulanate [Augmentin 875-125 mg Tablet] 1 tab PO BID #28 tablet 09/22/18 History of Present Illness History of Present Illness: VENTURA PEARSON is a 58 year old female with a past medical history of hype rtension, morbid obesity and osteoarthritis. Patient presents with 48 hours of fever, nausea and vomiting of gastric content and diarrhea prompting her to seek evaluation in the emergency department where she is found to have fever, hypotension, leukocytosis, acute renal failure and pyuria. Ultrasound is negative for common bile duct dilatation or hydronephrosis. She receives an IV fluid challenge, empiric antibiotics and referred to the hospitalist for admission. Patient denies history of nephrolithiasis or recent antibiotic use. She is tearful and admits to excessive use of ibuprofen for chronic back pain. Hospital Course Hospital Course: She improved with IV fluids and IV antibiotics. Her creatinine trended down to normal. She was still intermittently febrile but her fever curve had trended down and she was afebrile at time of discharge. Her urine culture was positive for Enterococcus faecalis, which was pansensitive. 1 of her blood cultures turn positive for sensitive Proteus mirabilis. Infectious disease recommended doing a CT scan of her belly but the patient would not allow us to do that. This was recommended to help us determine whether or not she had an intra-abdominal infectious process going on that was the cause of her bacteremia. The patient still refused. The decision was made to treat her with 2 weeks of Augmentin. The amoxicillin would cover the enterococcus as well as the Proteus, and is also an acceptable treatment for an infectious colitis, if she happens to have one. She has an appointment in her primary care provider's office in just over a week, and she was encouraged to keep that appointment. She was advised to come back in if she has a recurrence of her symptoms despite antibiotic treatment. Her labs and examination were reassuring and she was discharged in good condition. Physical Exam Vital Signs: Temp Pulse Resp BP Pulse Ox 98.6 F 89 19 98/56 L 97 09/22/18 14:13 09/22/18 14:13 09/22/18 14:13 09/22/18 14:13 09/22/18 14:13 Intake & Output 09/21/18 09/22/18 09/23/18 06:59 06:59 06:59 Intake Total 1122 372 Output Total 3 Balance 1119 372 Weight 120.2 kg 119.4 kg 119.4 kg General appearance: PRESENT: no acute distress, cooperative, disheveled, morbidly obese Respiratory exam: PRESENT: clear to auscultation eusebio, symmetrical, unlabored. ABSENT: accessory muscle use, crackles, prolonged expiratory phas, rhonchi, tach ypnea, wheezes Cardiovascular exam: PRESENT: RRR, +S1, +S2 Pulses: PRESENT: normal carotid pulses Vascular exam: PRESENT: normal capillary refill GI/Abdominal exam: PRESENT: normal bowel sounds, soft. ABSENT: distended, guarding, rebound, tenderness Extremities exam: ABSENT: clubbing, pedal edema Musculoskeletal exam: PRESENT: normal inspection. ABSENT: deformity Neurological exam: PRESENT: alert, awake, oriented to person, oriented to place, oriented to time, oriented to situation Psychiatric exam: PRESENT: appropriate affect, normal mood Skin exam: PRESENT: dry, warm Results Laboratory Results: 09/21/18 10:05 09/21/18 10:05 09/17/18 15:22 Blood Blood Culture - Final NO GROWTH IN 5 DAYS Impressions: Chest X-Ray 09/17/18 13:04 IMPRESSION: Low lung volumes without evidence of acute cardiopulmonary process. Abdomen Ultrasound 09/17/18 14:30 IMPRESSION: Multiple small stones in the gallbladder. Fatty liver. Qualifiers - * PATIENT BEING DISCHARGED WITH ANY OF THE FOLLOWING DIAGNOSIS: No
== END 2018-09-22 15:33 | disposition home or self-care (01) | DRG 689 ==
LOC: ER 12:58 → EH 18:32 → 3W 20:00
PROVIDERS: ADMIT Internal Medicine; ATTEND Internal Medicine
DX: N39.0 Urinary tract infection, site not specified (principal); R65.20 Severe sepsis without septic shock; N17.9 Acute kidney failure, unspecified; Z68.42 Body mass index [BMI] 45.0-49.9, adult; E66.01 Morbid (severe) obesity due to excess calories; R31.9 Hematuria, unspecified; R73.9 Hyperglycemia, unspecified; I10 Essential (primary) hypertension; M19.90 Unspecified osteoarthritis, unspecified site; M54.9 Dorsalgia, unspecified; G89.29 Other chronic pain; E78.5 Hyperlipidemia, unspecified; F32.9 Major depressive disorder, single episode, unspecified; F41.1 Generalized anxiety disorder; B95.2 Enterococcus as the cause of diseases classified elsewhere; B96.4 Proteus (mirabilis) (morganii) as the cause of diseases classified elsewhere; Z87.891 Personal history of nicotine dependence; Z83.3 Family history of diabetes mellitus; Z91.19 Patient's noncompliance with other medical treatment and regimen
CPT/HCPCS: 36415; 71045; 76705; 80048; 80053; 81001; 82803; 82962; 83036; 83605; 84443; 85025; 85027; 85610; 87040; 87077; 87086; 87088; 87186; 87493; 93005; 93010; 96365; 96366; 96375; 99285; J0696; J1644; J1885; J2405; J7030; J7120

== ENCOUNTER → 2018-12-01 | Outpatient (CLI) | payer MEDICARE, MEDICAID ==
--- NOTE | 2018-12-01 15:30 | WOMENS IMAGING REPORT ---
EXAM DESCRIPTION: BILAT SCREENING MAMMO W/CAD COMPLETED DATE/TIME: 12/01/2018 2:34 pm REASON FOR STUDY: Z12.31 ROUTINE BILATERAL SCREENING Z12.31 ENCNTR SCREEN MAMMOGRAM FOR MALIGNANT N EOPLASM OF ROBY COMPARISON: 2012, 2014 TECHNIQUE: Standard craniocaudal and mediolateral oblique views of each breast recorded using [employer] acquisition. LIMITATIONS: None. FINDINGS: No suspicious masses, suspicious calcifications or architectural distortion. No areas of s uspicion. Read with the assistance of CAD. .[facility] - R2 [employer] Grinder Operator Surface Version 9.2 IMPRESSION: ASSESSMENT: Negative MAMMOGRAM. BIRADS 1 BREAST DENSITY: b. There are scattered areas of fibroglandular density. BIRAD: 1 NEGATIVE RECOMMENDATION: ROUTINE SCREENING COMMENT: The patient has been notified of the results by letter per MQSA requirements. Additional no tification policies are in place for contacting patient with suspicious or incomplete findings. Quality ID #225: The [employer] recommends an annual screening mammogram for women aged 40 years or over. This facility utilizes a reminder system to ensure that all patients receive reminder letters, and/or direct phone calls for appointments. This includes reminders for routine scr eening mammograms, diagnostic mammograms, or other Breast Imaging Interventions when appropriate. Th is patient will be placed in the appropriate reminder system. TECHNICAL DOCUMENTATION: FINDING NUMBER: (1) ASSESSMENT: (1) JOB ID: [id number] [employer]- All Rights Reserved Reading location - IP/workstation name: [email or web address]
== END ==
LOC: WI 14:25
PROVIDERS: ATTEND Family Medicine
DX: Z12.31 Encounter for screening mammogram for malignant neoplasm of breast (principal)
CPT/HCPCS: 77067

== ENCOUNTER → 2019-10-26 | Outpatient (CLI) | payer MEDICARE, MEDICAID ==
--- NOTE | 2019-10-26 10:29 | RADIOLOGY REPORT (SQ) ---
EXAM DESCRIPTION: U/S ABDOMEN LIMITED W/O DOP IMAGES COMPLETED DATE/TIME: 10/26/2019 9:53 am REASON FOR STUDY: K80.20 CALCULUS OF GALLBLADDER W/O CHOLECYSTITIS W/O OBSTRUCTION K80.20 CALCULUS OF GALLBLADDER W/O CHOLECYSTITIS W/O OBSTRUC COMPARISON: 09/17/2018 TECHNIQUE: Dynamic and static grayscale images acquired of the abdomen and recorded on PACS. Additio nal selected color Doppler and spectral images recorded. LIMITATIONS: None. FINDINGS: PANCREAS: Largely obscured by overlying bowel gas. LIVER: Fatty infiltration with areas of fatty sparing. LIVER VASCULATURE: Normal directional flow of the main portal vein and hepatic veins. GALLBLADDER: Gallbladder wall is at the upper limits of normal in thickness. There are stones and sl udge. No pericholecystic edema. ULTRASOUND-DETECTED NULL'S SIGN: Negative. INTRAHEPATIC DUCTS AND COMMON DUCT: CBD and intrahepatic ducts normal caliber. No filling defects. AORTA: No aneurysm. RIGHT KIDNEY: Normal size. Normal echogenicity. No solid or suspicious masses. No hydronephrosis. No calcifications. PERITONEAL AND RIGHT PLEURAL SPACE: No ascites or effusions. OTHER: No other significant findings. IMPRESSION: 1. Fatty infiltrated liver with areas of fatty sparing. 2. Cholelithiasis and gallbladder sludge. No pericholecystic edema. Negative sonographic Null's s ign. TECHNICAL DOCUMENTATION: JOB ID: [id number] [employer]- All Rights Reserved Reading location - IP/workstation name: [email or web address]
== END ==
LOC: RAD 08:48
PROVIDERS: ATTEND Surgery
DX: K80.20 Calculus of gallbladder without cholecystitis without obstruction (principal)
CPT/HCPCS: 76705

== ENCOUNTER → 2019-11-05 | Outpatient (CLI) | payer MEDICARE, MEDICAID ==
[2019-11-05 14:46] LABS: ALBUMIN 4.6 g/dL (3.5-5.0); ALKALINE PHOSPHATASE 110 U/L (38-126); ASPARTATE AMINO TRANSFERASE 20 U/L (14-36); BILIRUBIN,TOTAL 0.6 mg/dL (0.2-1.3)
== END ==
LOC: OD 12:51
PROVIDERS: ATTEND Surgery
DX: K80.20 Calculus of gallbladder without cholecystitis without obstruction (principal)
CPT/HCPCS: 36415; 80076

== ENCOUNTER 2020-01-13 08:30 | Day surgery (SDC) | payer MEDICARE, MEDICAID ==
[2020-01-08 10:19] LABS: HEMATOCRIT 38.9 % (36.0-47.0); HEMOGLOBIN 13.2 g/dL (12.0-15.5); MEAN CORPUSCULAR HEMOGLOBIN 30.6 pg (27.0-33.4); MEAN CORPUSCULAR HGB CONC 33.9 g/dL (32.0-36.0); MEAN CORPUSCULAR VOLUME 90 fl (80-97); PLATELET COUNT 271 10^3/uL (150-450); RED CELL DISTRIBUTION WIDTH 14.5 % (11.5-14.0); WHITE BLOOD COUNT 7.5 10^3/uL (4.0-10.5)
[2020-01-08 10:52] LABS: ANION GAP 10 (5-19); BLOOD UREA NITROGEN 11 mg/dL (7-20); CALCIUM 9.8 mg/dL (8.4-10.2); CARBON DIOXIDE 25 mmol/L (22-30); CHLORIDE 101 mmol/L (98-107); GLUCOSE 267 mg/dL (75-110); POTASSIUM 4.5 mmol/L (3.6-5.0)
[~2020-01-13 08:30] MED LIST: ACETAMINOPHEN 325 MG TABLET PO PRN; BUPIVACAINE HCL 0.25 % INJ/PF (2.5 MG/1 ML) 30 ML VIAL ONE; CEFAZOLIN 1 GM/D5W RTU 1 GM/50 ML RTUPB IV ONE; CEFAZOLIN 1 GM/D5W RTU 1 GM/50 ML RTUPB IV PRN; GLYCOPYRROLATE 1 MG/5 ML VIAL ONE; LACTATED RINGERS 1000 ML IV PRN; LIDOCAINE 0.5% INJ-PF (5 MG/ML) 50 ML SDV SUBCUT PRN; LIDOCAINE 2% INJ-PF (20 MG/ML) 2 ML AMPUL ONE; NEOSTIGMINE METHYLSULFATE 10 MG/10 ML VIAL ONE
[2020-01-13] MEDS ORDERED: LABETALOL HCL INJ 20 MG/4 ML DISP.SYRIN IV PRN (09:04)
[2020-01-13] MEDS ORDERED: MIDAZOLAM 2 MG/2 ML INJ ONE (10:24)
[2020-01-13] MEDS ORDERED: FENTANYL CITRATE INJ/PF 250 MCG/5 ML AMPULE ONE (10:24)
[2020-01-13] MEDS ORDERED: PROPOFOL INJ 200 MG/20 ML VIAL IV ONE (10:24)
[2020-01-13] MEDS ORDERED: OXYCODONE-ACETAMINOPHEN 5-325 MG TABLET PO PRN ×3 (12:06→12:30)
--- NOTE | 2020-01-13 12:06 | Discharge Summary ---
Discharge Summary (SDC) - Discharge Final Diagnosis: cholelithiasis Date of Surgery: 01/13/20 Discharge Date: 01/13/20 Condition: Good Forms: ASU Anesthesia D/C Instruction, Discharge POC-Surgical Service Treatment or Instructions: [facility] [address] [place], [place] [address] Discharge Instructions: Laparoscopic Surgery 1. General Information: a. DO NOT DRIVE a car or operate dangerous machinery for 3-4 days or while taking narcotic pain pills. b. DO NOT consume alcohol, tranquilizers, sleeping medications or any non- prescribed medications for 24 hours unless approved by your doctor or as long as taking narcotic prescription medications. c. DO NOT make important decisions or sign any important papers for the first 24 hours after surgery. d. When discharged home the same day of surgery have a responsible person with you for the first night. 2. Activity Restrictions: 2 weeks . a. NO heavy lifting, straining abdominal muscles, bending over a lot, yard work, house work, or sports for [address] for 3-4 days. c. It is fine to go for walks, up and down steps, ride in a car. d. Elevate your head when sleeping/resting. 3. Treatment: a. You may shower 24 hours after surgery, no baths or swimming for 2 weeks. Remove band-aids or dressings before shower but leave paper strips (steri- strips) on the skin to fall off on their own. If still on at postoperative visit they will be removed then. b. Drainage of fluid or blood is not unusual from an incision. If occurs, you can clean with peroxide and cotton ball daily and cover with dry gauze until the wound seals. c. If a lot of bleeding occurs, you can hold pressure with a gauze or cloth over the site for 10 minutes and it will usually stop. If bleeding continues you will need to call for possible evaluation in office or emergency room. 4. Medications: a. __Toradol___ may be taken for pain as needed, one tablet every 6 hours. Do not take additional NSAIDs with Toradol b. You should resume all normal medications unless a change is specified by your doctors. 5. Diet: Begin with clear liquids and may progress to your normal diet if not nauseated. No high fat, high protein foods the day of surgery. 6. The following may occur after laparoscopic surgery: a. Shoulder or upper back ache from retained gas that should resolve in 1-2 days b. Soreness and bruising at incision sites will resolve with time. c. Scrotal swelling (labia in women) and bruising is often seen after hernia surgery. d. Sore throat e. Fatigue may last days to weeks. f. Difficulty urinating may occur and may need to come into emergency room for urinary catheter placement. 7. Notify Physician If: a. Worsening or pain not improved with pain medication b. Persistent nausea and vomiting c. Fever above 101 d. Persistent bleeding or swelling at operative site e. Unable to urinate and uncomfortable bladder 6-8 hours after surgery 8..Follow Up Care: a. Schedule a follow up appointment with your doctor for 2 weeks. In the event of any postoperative problems or questions or you may call the office during business hours or the On-Call physician evenings and weekends at [facility]. [facility] I understand the instructions for my postoperative care as described above and a copy has been given to me. Patient/Significant Other Witness Date Prescriptions: Ketorolac Tromethamine [Toradol 10 mg Tablet] 10 mg PO Q6HP PRN #20 tablet PRN Reason: Referrals: RENE SMALLS MD [ACTIVE STAFF] - 01/25/20 9:15 am Discharge Diet: Other (Comments) - small bland portions then progress Discharge Activity: Activity As Tolerated, No Lifting Over 10 Pounds, Walk Frequently Report the Following to Your Physician Immediately: Nausea, Vomiting, Increase in Pain, Fever over 101 Degrees, Unusual Bleeding, Redness, Swelling, Warmth, Drainage-Foul Smelling
[2020-01-13] MEDS ORDERED: FENTANYL CITRATE INJ/PF 100 MCG/2 ML AMPUL ONE (12:14)
[2020-01-13] MEDS ORDERED: PROMETHAZINE HCL INJ 25 MG/1 ML VIAL ONE (12:14)
--- NOTE | 2020-01-13 12:18 | Operative Report ---
Operative Report DATE OF SURGERY: 01/13/20 PREOPERATIVE DIAGNOSIS: 1. Symptomatic cholelithiasis with cholecystitis. 2. Morbid obesity POSTOPERATIVE DIAGNOSIS: Same OPERATION: Laparoscopic cholecystectomy SURGEON: RENE CALLES PRODUCTION COST ESTIMATOR: LILLIAM FLOOD ANESTHESIA: GA TISSUE REMOVED OR ALTERED: 1 gallbladder COMPLICATIONS: None ESTIMATED BLOOD LOSS: Minimal INTRAOPERATIVE FINDINGS: See below PROCEDURE: After obtaining informed consent, the patient was taken to the operating room. General Anesthesia was induced; the arms were extended, and the abdomen was exposed, and prepped and draped in a sterile fashion. Instrumentation was set up for laparoscopic cholecystectomy. Surgical plan and surgical timeout were conducted. A vertical incision was made above the umbilicus, and a verres needle was inserted uneventfully into the peritoneal cavity. Pneumoperitoneum was established. The verres needle was removed and a 5 mm trocar was inserted and a 5 mm flexible laparoscope was inserted. Visualization of the peritoneal cavity confirmed safe uneventful entry. Under direct visualization 3 additional 5 mm ports were established, one in the subxiphoid position and second in the subcostal position. A grasper was placed on the fundus of the gallbladder and the gallbladder is elevated over the right surface of the liver; a second grasper was used to grasp the infundibulum of the gallbladder. Visualization of the hepato biliary anatomy appeared normal. The neck of the gallbladder and junction with the cystic duct was dissected out. The Cystic artery was in its usual location, medial and cephalad to the cystic duct. The cystic artery was surrounded with a right angle clamp, clipped twice proximally, once distally and divided with laparoscopic scissors. We now opened the triangle of Calot by dividing the peritoneal reflection on both the medial and lateral sides of the cystic duct infundibular junction. The critical view was obtained. Photos were taken. We now milked the cystic duct of any possible stones, clipped the cystic duct proximally 2 times, once distally and divided the duct with scissors. Photos were taken again. The gallbladder was now removed from the undersurface of the liver using hook cautery dissection. Graspers were repositioned and the gallbladder was removed uneventfully from the abdominal cavity through the super umbilical port site incision. The specimen was examined, then passed off to pathology for permanent analysis. We returned to the peritoneal cavity check for bleeding, and only a small area adjacent to the cystic artery was oozing, and this was managed with electrocautery. There was no evidence of bile leak. We Confirmed satisfactory placement of clips on cystic duct and cystic artery were secured . At this point we felt the operation was complete. The subcutaneous tissue was then anesthetized with quarter percent Marcaine Sponge and needle counts are correct. All ports removed under direct visualization pneumoperitoneum evacuated, and 5 mm port wounds closed with 3-0 Vicryl suture, benzoin and Steri-Strips. The patient was extubated, and taken to the recovery room in stable condition. The physician assistant case manager, Ms. Roman, provided assistance during this case by: Assisting and port insertion, retracting tissue, instillation of local anesthesia and closure of skin incisions.
[2020-01-13] MEDS ORDERED: MEPERIDINE HCL/PF INJ 25 MG/1 ML DISP.SYRIN IV PRN (12:30)
[2020-01-13] MEDS ORDERED: MORPHINE SULFATE 10 MG/ML INJ IV PRN (12:30)
[2020-01-13] MEDS ORDERED: PROMETHAZINE HCL INJ 25 MG/1 ML VIAL IV PRN ×2 (12:30)
[2020-01-13] MEDS ORDERED: FENTANYL CITRATE INJ/PF 100 MCG/2 ML AMPUL IV PRN ×3 (12:30)
[2020-01-13] MEDS ORDERED: DIPHENHYDRAMINE HCL 50 MG/ML VIAL IV PRN (12:30)
[2020-01-13 15:06] VITALS: BP 149/92
== END 2020-01-13 15:00 | disposition home or self-care (01) ==
LOC: OROUT 08:30
PROVIDERS: ATTEND Surgery
DX: K81.1 Chronic cholecystitis (principal); I10 Essential (primary) hypertension; E11.9 Type 2 diabetes mellitus without complications; Z03.818 Encounter for observation for suspected exposure to other biological agents ruled out; E66.01 Morbid (severe) obesity due to excess calories; E78.00 Pure hypercholesterolemia, unspecified; G89.29 Other chronic pain; M54.9 Dorsalgia, unspecified; Z79.899 Other long term (current) drug therapy; Z79.84 Long term (current) use of oral hypoglycemic drugs
CPT/HCPCS: 36415; 82962; 85027; 80048; 88304 ×2; 47562; U0003; J2250; J0690; J3010 ×2; J2550; J2704; C9803; 790; 87635; J2710; J3490